=== PATIENT | male | born 1995 | race Caucasian/White ===

== ENCOUNTER 2020-04-01 13:07 | Emergency (ER) | payer OTHER ==
[~2020-04-01] VITALS: Ht 195.6 cm; Wt 190.5 kg
[~2020-04-01 13:07] MED LIST: NORCO 5-325 TA1 EACH PO
[2020-04-01] MEDS ORDERED: ZANAFLEX4 MG PO (15:42)
[2020-04-01] MEDS ORDERED: IBUPROFEN 800800 M1 PO (15:42)
[2020-04-01 16:04] VITALS: BP 248/151
== END 2020-04-01 16:05 | disposition home or self-care (01) ==
LOC: M.ERS 13:07
DX: S70.02XA Contusion of left hip, initial encounter (principal); S80.02XA Contusion of left knee, initial encounter; S50.02XA Contusion of left elbow, initial encounter; M25.512 Pain in left shoulder; F12.10 Cannabis abuse, uncomplicated; Z88.0 Allergy status to penicillin; V43.52XA Car driver injured in collision with other type car in traffic accident, initial encounter; Y93.89 Activity, other specified; Y92.488 Other paved roadways as the place of occurrence of the external cause; Y99.8 Other external cause status; R03.0 Elevated blood-pressure reading, without diagnosis of hypertension